=== PATIENT | female | born 1980 | race Caucasian/White ===

== ENCOUNTER → 2016-08-19 | Outpatient (CLI) | payer OTHER ==
[~2016-08-19] MED LIST: SINGULAIR10 MG; SYMBICORT1 AE5; SYNTHROID0.175 MG PO; VENTOLIN0.09 MG IH; ZYRTEC10 M1 PO
== END ==
LOC: LAB 16:53
DX: E03.4 Atrophy of thyroid (acquired) (principal)

== ENCOUNTER → 2017-09-22 | Outpatient (CLI) | payer OTHER ==
[2011-11-05 00:10] VITALS: BP 142/87
[2017-09-23 05:12] LABS: T3 TOTAL 121 ng/dL (87-178)
== END ==
LOC: LAB 15:32
PROVIDERS: Nurse Practitioner Family
DX: E03.9 Hypothyroidism, unspecified (principal); Z88.1 Allergy status to other antibiotic agents; Z88.0 Allergy status to penicillin; Z88.2 Allergy status to sulfonamides; Z88.7 Allergy status to serum and vaccine

== ENCOUNTER 2018-05-20 19:59 | Emergency (ER) | payer OTHER ==
[~2018-05-20] VITALS: Ht 165.1 cm; Wt 109.1 kg
[2018-05-20 21:02] LABS: EOS # 0.2 (0.04-0.40); EOS % 2.5 % (1.0-5.0); HEMOGLOBIN 10.7 g/dL (12.5-16.0); LYMPH# 2.7 (1.50-4.00); MEAN CELL VOLUME 76 fl (78-100); MEAN CORPUSCULAR HGB CONC 32 g/dL (33-37); MONO # 0.7 (0.20-0.80); NEU # 4.9 (1.40-6.50); PLATELET COUNT 415 K/mm3 (130-400); RED CELL DISTRIBUTION WIDTH 15.7 % (11.5-14.5); WHITE BLOOD COUNT 8.5 K/mm3 (4.8-10.8)
[2018-05-20 21:21] LABS: MEAN CORPUSCULAR HEMOGLOBIN 24 pg (27-31)
[2018-05-20] MEDS ORDERED: PREDNISONE20 M1 PO (22:23)
[2018-05-20 22:24] VITALS: BP 148/80
== END 2018-05-20 22:24 | disposition home or self-care (01) ==
LOC: ED 19:59
PROVIDERS: Family Medicine
DX: T78.3XXA Angioneurotic edema, initial encounter (principal); D64.9 Anemia, unspecified; E03.9 Hypothyroidism, unspecified; J45.909 Unspecified asthma, uncomplicated; Z79.899 Other long term (current) drug therapy; Z88.1 Allergy status to other antibiotic agents; Z88.7 Allergy status to serum and vaccine

== ENCOUNTER → 2019-01-09 | Outpatient (CLI) | payer OTHER ==
[~2019-01-09] MED LIST changes: +PREDNISONE20 M1 PO
== END ==
LOC: LAB 14:37
DX: E03.9 Hypothyroidism, unspecified (principal)

== ENCOUNTER → 2019-12-11 | Outpatient (CLI) | payer OTHER ==
[2019-12-11 13:57] LABS: EOS # 0.1 (0.04-0.40); EOS % 1.5 % (1.0-5.0); HEMATOCRIT 38.9 % (37.0-47.0); HEMOGLOBIN 12.9 g/dL (12.5-16.0); LYMPH# 2.2 (1.50-4.00); MEAN CELL VOLUME 87 fl (78-100); MEAN CORPUSCULAR HEMOGLOBIN 29 pg (27-31); MEAN CORPUSCULAR HGB CONC 33 g/dL (33-37); MONO # 0.6 (0.20-0.80); NEU # 4.4 (1.40-6.50); PLATELET COUNT 344 K/mm3 (130-400); RED BLOOD COUNT 4.49 M/mm3 (4.10-5.30); RED CELL DISTRIBUTION WIDTH 12.9 % (11.5-14.5); WHITE BLOOD COUNT 7.4 K/mm3 (4.8-10.8)
[2019-12-11 14:09] LABS: ALBUMIN 3.9 g/dL (3.5-5.0); POTASSIUM 3.9 mmol/L (3.5-5.1)
[2019-12-11 14:10] LABS: CALCIUM 8.9 mg/dL (8.3-10.5)
[2019-12-11 14:11] LABS: TOTAL PROTEIN 6.6 g/dL (6.4-8.3)
[2019-12-11 14:13] LABS: TOTAL BILIRUBIN 0.3 mg/dL (0.2-1.2)
[2019-12-11 23:24] LABS: T3 TOTAL 154 ng/dL (87-178)
== END ==
LOC: LAB 13:42
PROVIDERS: Physician Assistant
DX: E03.9 Hypothyroidism, unspecified (principal); K55.9 Vascular disorder of intestine, unspecified; K90.9 Intestinal malabsorption, unspecified; D64.9 Anemia, unspecified; E78.2 Mixed hyperlipidemia

== ENCOUNTER → 2020-06-05 | Outpatient (CLI) | payer OTHER | LOC: LAB 08:41 | DX: R05 Cough (principal); R06.02 Shortness of breath; Z20.828 Contact with and (suspected) exposure to other viral communicable diseases ==

== ENCOUNTER → 2020-09-04 | Outpatient (CLI) | payer OTHER ==
[2020-09-04 22:43] LABS: HEPATITIS B SURFACE ANTIBODY <2.0 (())
== END ==
LOC: LAB 13:56
PROVIDERS: Physician Assistant
DX: Z23 Encounter for immunization (principal)

== ENCOUNTER → 2021-12-24 | Outpatient (CLI) | payer OTHER ==
[2021-12-24 16:31] LABS: BASO # 0.03 K/mm3 (0.02-0.10); EOS # 0.11 K/mm3 (0.04-0.40); EOS % 1.2 % (1.0-5.0); HEMATOCRIT 40.6 % (37.0-47.0); HEMOGLOBIN 13.6 g/dL (12.5-16.0); LYMPH# 2.28 K/mm3 (1.50-4.00); MEAN CELL VOLUME 87 fl (78-100); MEAN CORPUSCULAR HEMOGLOBIN 29 pg (27-31); MEAN CORPUSCULAR HGB CONC 34 g/dL (33-37); MEAN PLATELET VOLUME 8.8 fl (7.4-10.4); MONO # 0.77 K/mm3 (0.20-0.80); NEU # 5.98 K/mm3 (1.40-6.50); PLATELET COUNT 320 K/mm3 (130-400); RED BLOOD COUNT 4.68 M/mm3 (4.10-5.30); RED CELL DISTRIBUTION WIDTH 12.4 % (11.5-14.5); WHITE BLOOD COUNT 9.2 K/mm3 (4.8-10.8)
[2021-12-24 16:47] LABS: POTASSIUM 3.6 mmol/L (3.5-5.1)
[2021-12-24 16:48] LABS: ALBUMIN 4.3 g/dL (3.5-5.0)
[2021-12-24 16:49] LABS: CALCIUM 9.2 mg/dL (8.3-10.5)
[2021-12-24 16:50] LABS: TOTAL PROTEIN 7.3 g/dL (6.4-8.3)
[2021-12-24 16:52] LABS: TOTAL BILIRUBIN 0.4 mg/dL (0.2-1.2)
== END ==
LOC: LAB 16:18
PROVIDERS: Physician Assistant
DX: Z00.00 Encounter for general adult medical examination without abnormal findings (principal); Z13.220 Encounter for screening for lipoid disorders; E03.9 Hypothyroidism, unspecified; J30.9 Allergic rhinitis, unspecified; T78.1XXA Other adverse food reactions, not elsewhere classified, initial encounter; J45.909 Unspecified asthma, uncomplicated

== ENCOUNTER → 2022-03-02 | Outpatient (CLI) | payer OTHER | LOC: MAMMO 10:19 | DX: Z12.31 Encounter for screening mammogram for malignant neoplasm of breast (principal) ==

== ENCOUNTER → 2022-03-11 | Outpatient (CLI) | payer OTHER | LOC: LAB 12:19 | DX: E03.9 Hypothyroidism, unspecified (principal) ==

== ENCOUNTER → 2022-09-17 | Outpatient (CLI) | payer OTHER | LOC: LAB 14:55 | DX: E03.9 Hypothyroidism, unspecified (principal); F41.8 Other specified anxiety disorders; T50.905A Adverse effect of unspecified drugs, medicaments and biological substances, initial encounter ==

== ENCOUNTER → 2023-07-27 | Outpatient (CLI) | payer OTHER ==
[2023-07-27 10:14] LABS: BASO # 0.03 K/mm3 (0.02-0.10); EOS # 0.14 K/mm3 (0.04-0.40); EOS % 1.9 % (1.0-5.0); HEMATOCRIT 40.7 % (37.0-47.0); LYMPH# 2.13 K/mm3 (1.50-4.00); MEAN CELL VOLUME 86 fl (78-100); MEAN CORPUSCULAR HEMOGLOBIN 28 pg (27-31); MEAN CORPUSCULAR HGB CONC 32 g/dL (33-37); MEAN PLATELET VOLUME 8.5 fl (7.4-10.4); MONO # 0.62 K/mm3 (0.20-0.80); PLATELET COUNT 386 K/mm3 (130-400); RED BLOOD COUNT 4.73 M/mm3 (4.10-5.30); RED CELL DISTRIBUTION WIDTH 13.4 % (11.5-14.5); WHITE BLOOD COUNT 7.3 K/mm3 (4.8-10.8)
[2023-07-27 10:21] LABS: ALBUMIN 4.4 g/dL (3.5-5.0)
[2023-07-27 10:23] LABS: CALCIUM 9.4 mg/dL (8.3-10.5)
[2023-07-27 10:24] LABS: TOTAL PROTEIN 7.2 g/dL (6.4-8.3)
[2023-07-27 10:26] LABS: TOTAL BILIRUBIN 0.3 mg/dL (0.2-1.2)
[2023-07-27 22:58] LABS: T3 TOTAL 205 ng/dL (35-193)
== END ==
LOC: MAMMO 08:30 → LAB 08:47
PROVIDERS: Physician Assistant
DX: Z12.31 Encounter for screening mammogram for malignant neoplasm of breast (principal); Z13.220 Encounter for screening for lipoid disorders; E03.9 Hypothyroidism, unspecified; K90.9 Intestinal malabsorption, unspecified